=== PATIENT | female | born 1965 | race Caucasian/White ===

== ENCOUNTER 2019-01-17 09:38 | Day surgery (SDC) | payer OTHER ==
[2019-01-17] MEDS ORDERED: FENTAnyl 50 MCG/ML VIAL (11:12)
[2019-01-17] MEDS ORDERED: MIDAZOLAM 1 MG/ML 2 ML INJ ×2 (11:12)
== END 2019-01-17 12:36 | disposition home or self-care (01) ==
LOC: GIL 09:38
DX: K92.1 Melena (principal); K64.8 Other hemorrhoids; K57.30 Diverticulosis of large intestine without perforation or abscess without bleeding
CPT/HCPCS: 45378; 84703